=== PATIENT | female | born 2000 | race Caucasian/White ===

== ENCOUNTER 2023-06-08 08:01 | Outpatient (CLI) | payer OTHER, SELFPAY ==
--- NOTE | ~2023-06-08 | XR_ITS ---
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 There was retrograde administration of Omnipaque 350 mixed with saline contrast into patient's existing [place] catheter. Fluoroscopic leonid ges of the pelvis were obtained including a postvoid image. A total of 18 fluoroscopic images and one overhead radiograph were obtained. Fluoroscopy exposure time was 0.3 minutes. Total DAP was 2.8 Gycm ^2 FINDINGS: There is a normal contour to the bladder with smooth mucosal surface. No extraluminal contrast extrav asation appreciated. No vesicoureteral reflux. Small amount of residual contrast within the bladder p ost drainage to gravity. IMPRESSION: 1. Small amount of residual contrast within the bladder post gravity. Otherwise normal cystogram wit h no bladder leak. Reviewed, dictated and finalized at location A. [employer] IMPRESSION: 1. Small amount of residual contrast within the bladder post gravity. Otherwis e normal cystogram with no bladder leak.
== END 2023-06-08 08:02 | disposition home or self-care (01) ==
LOC: ANHIMG 08:08
PROVIDERS: PCP Family Medicine; Visit Provider Urology
DX: R30.0 Dysuria (principal)
CPT/HCPCS: 51600; 74430; Q9967